=== PATIENT | female | born 1975 | race Caucasian/White ===

== ENCOUNTER 2018-06-21 07:11 | Inpatient (IN) | payer BC ==
[2018-06-21] MEDS ORDERED: Sodium Chloride 0.9% 1,000 ML IV STA (07:35)
--- NOTE | 2018-06-21 07:38 | ED PDOC ---
Arrival/HPI - General Chief Complaint: Cough, Cold, Congestion Time Seen by Provider: 06/21/18 07:29 Historian: Patient - History of Present Illness Narrative History of Present Illness (Text): 06/21/18 07:35 42 year old female, whose past medical history includes pituitary adenoma and anemia, who presents to the Emergency department complaining of cough, congestion, and abdominal pain. Pt states when she lays on her back, her cough is worse. Patient denies any fever, chest pain, shortness of breath, nausea, vomiting, diarrhea, urinary symptoms, back pain, neck pain, headache, dizziness, or any other complaints. PMD: Dr. West Symptom Onset: Gradual Symptom Course: Unchanged Activities at Onset: Light Context: Home Past Medical History - Provider Review Nursing Documentation Reviewed: Yes - Cardiac Hx Cardiac Disorders: No - Pulmonary Hx Respiratory Disorders: No - Neurological Hx Neurological Disorder: No - HEENT Hx HEENT Disorder: No - Renal Hx Renal Disorder: No - Endocrine/Metabolic Hx Endocrine Disorders: Yes Other/Comment: Pituitary gland problem - Hematological/Oncological Hx Blood Disorders: No - Integumentary Hx Dermatological Disorder: Yes Other/Comment: acne - Musculoskeletal/Rheumatological Hx Musculoskeletal Disorders: No Hx Falls: No - Gastrointestinal Hx Gastrointestinal Disorders: No - Genitourinary/Gynecological Hx Genitourinary Disorders: No - Psychiatric Hx Psychophysiologic Disorder: No Hx Depression: No Hx Emotional Abuse: No Hx Physical Abuse: No Hx Substance Use: No - Surgical History Hx Section: Yes - Suicidal Assessment Feels Threatened In Home Enviroment: No Family/Social History - Physician Review Nursing Documentation Reviewed: Yes Family/Social History: Unknown Family HX Smoking Status: Never Smoked Hx Alcohol Use: No Hx Substance Use: No Allergies/Home Meds Allergies/Adverse Reactions: Allergies No Known Allergies Allergy (Verified 08/15/16 08:48) Home Medications: Home Meds Medication Instructions Recorded Confirmed Spironolactone [Aldactone] 25 mg PO DAILY 08/15/16 08/15/16 Spironolactone [Aldactone] 100 mg PO DAILY 08/15/16 08/15/16 Review of Systems - Physician Review All systems were reviewed & negative as marked: Yes - Review of Systems Constitutional: Normal Eyes: Normal ENT: Sinus Congestion Respiratory: Cough. absent: SOB Cardiovascular: Normal. absent: Chest Pain Gastrointestinal: Abdominal Pain Genitourinary Female: Normal. absent: Dysuria, Frequency Musculoskeletal: Normal. absent: Back Pain, Neck Pain Skin: Normal. absent: Rash Neurological: Normal. absent: Headache, Dizziness Endocrine: Normal Hemo/Lymphatic: Normal Psychiatric: Normal Physical Exam Vital Signs Reviewed: Yes Vital Signs Temp Pulse Resp BP Pulse Ox 06/21/18 07:22 98.1 F 69 18 132/62 98 Temperature: Afebrile Blood Pressure: Normal Pulse: Regular Respiratory Rate: Normal Appearance: Positive for: Well-Appearing, Non-Toxic, Comfortable Pain Distress: None Mental Status: Positive for: Alert and Oriented X 3 - Systems Exam Head: Present: Atraumatic, Normocephalic Pupils: Present: PERRL Extroacular Muscles: Present: EOMI Conjunctiva: Present: Normal Mouth: Present: Moist Mucous Membranes Neck: Present: Normal Range of Motion Respiratory/Chest: Present: Clear to Auscultation, Good Air Exchange. No: Respiratory Distress, Accessory Muscle Use Cardiovascular: Present: Regular Rate and Rhythm, Normal S1, S2. No: Murmurs Abdomen: Present: Tenderness (epigastric). No: Distention, Peritoneal Signs Back: Present: Normal Inspection Upper Extremity: Present: Normal Inspection. No: Cyanosis, Edema Lower Extremity: Present: Normal Inspection. No: Edema Neurological: Present: GCS=15, CN II-XII Intact, Speech Normal Skin: Present: Warm, Dry, Normal Color. No: Rashes Psychiatric: Present: Alert, Oriented x 3, Normal Insight, Normal Concentration Medical Decision Making ED Course and Treatment: 06/21/18 07:38 Impression: 42 year old female presents to the Emergency department complaining of cough, congestion, and abdominal pain. no h/ o of gi bleeding Plan: -- Labs -- Chest X-ray -- Protonix -- Sodium Chloride -- HCG, Qualitative urine -- UA -- Reassess and disposition Progress Notes: 06/21/18 07:59 Chest X-ray reviewed, shows: No acute disease. 06/21/18 08:48 Pt refused rectal exam. 06/21/18 12:33 labs cxr neg. pain resoveld pt sleepign refuses rectal. blood transfusion ordred. accepted by dr wesley jansen. - Scribe Statement The provider has reviewed the documentation as recorded by the Scrib[employer]ravo All medical record entries made by the Liamibunqiue were at my direction and personally dictated by me. I have reviewed the chart and agree that the record accurately reflects my personal performance of the history, physical exam, medical decision making, and the department course for this patient. I have also personally directed, reviewed, and agree with the discharge instructions and disposition. Disposition/Present on Arrival - Present on Arrival Any Indicators Present on Arrival: No History of DVT/PE: No History of Uncontrolled Diabetes: No Urinary Catheter: No History of Decub. Ulcer: No History Surgical Site Infection Following: None - Disposition Have Diagnosis and Disposition been Completed?: Yes Diagnosis: Cough, Anemia Disposition: HOSPITALIZED Disposition Time: 11:00 Condition: STABLE
[2018-06-21 08:21] LABS: BASO # 0.01 K/mm3 (0.0-2.0); BASO % 0.2 % (0.0-3.0); EOS # 0.1 (0.0-0.7); EOS % 1.5 % (1.5-5.0); GRAN # 2.93 (1.4-6.5); LYMPH # 1.9 (1.2-3.4); LYMPH % 35.8 % (22.0-35.0); MEAN CELL VOLUME 63.4 fl (80.0-105.0); MEAN CORPUSCULAR HEMOGLOBIN 17.6 pg (25.0-35.0); MEAN CORPUSCULAR HGB CONC 27.7 g/dl (31.0-37.0); MONO # 0.3 (0.1-0.6); MONO % 6.5 % (1.0-6.0); PLATELET COUNT 197 10^3/uL (120.0-450.0); RBC 3.93 10^6/uL (3.5-6.1); WHITE BLOOD COUNT 5.2 10^3/uL (4.5-11.0)
[2018-06-21 08:22] LABS: URINE BILIRUBIN NEGATIVE (NEGATIVE); URINE BLOOD NEGATIVE (NEGATIVE); URINE GLUCOSE (UA) NEGATIVE (NEGATIVE); URINE LEUKOCYTE ESTERASE NEGATIVE Leu/uL (NEGATIVE); URINE PROTEIN NEGATIVE mg/dL (<30 mg/dL); URINE UROBILINOGEN 0.2 E.U./dL (<1 E.U./dL)
[2018-06-21 08:26] LABS: ALB/GLOB RATIO 1.2 (1.1-1.8); ALBUMIN 4.3 g/dL (3.0-4.8); ALT/SGPT 29 U/L (7-56); AST/SGOT 19 U/L (14-36); BLOOD UREA NITROGEN 15 mg/dL (7-21); CALCIUM 9.1 mg/dL (8.4-10.5); GFR NON-AFRICAN AMERICAN > 60; INR 1.26; LIPASE 239 U/L (23-300); PARTIAL THROMBOPLASTIN TIME 30.7 Seconds (25.1-36.5); PROTHROMBIN TIME 14.5 SECONDS (9.4-12.5)
[2018-06-21 08:34] LABS: HEMOGLOBIN 6.9 g/dL (12.0-16.0)
[2018-06-21 08:41] LABS: HCG,QUALITATIVE URINE NEGATIVE (NEGATIVE); URINE APPEARANCE CLEAR (CLEAR); URINE COLOR YELLOW (YELLOW)
--- NOTE | 2018-06-21 09:38 | RAD ---
Date of service: 06/21/2018 HISTORY: cough COMPARISON: Chest radiograph dated 01/25/2013. FINDINGS: LUNGS: No active pulmonary disease. PLEURA: No significant pleural effusion identified, no pneumothorax apparent. CARDIOVASCULAR: No aortic atherosclerotic calcification present. Normal cardiac size. No pulmonary vascular congestion. OSSEOUS STRUCTURES: No significant abnormalities. VISUALIZED UPPER ABDOMEN: Normal. OTHER FINDINGS: None. IMPRESSION: No active disease.
[2018-06-21 11:18] LABS: IRON 23 ug/dL (45-180)
[2018-06-21 11:28] LABS: % IRON SATURATION 5 % (20-55); TOTAL IRON BINDING CAPACITY 481 ug/dL (265-497)
[2018-06-21] MEDS: Pantoprazole 40 mg EC Tab PO SCH (12:09)
[2018-06-21] MEDS: Multivitamin With Minerals Tab PO SCH (12:09)
[2018-06-21 14:52] VITALS: BMI 28.7
[2018-06-21 16:10] LABS: HEMOGLOBIN 8.1 g/dL (12.0-16.0)
[2018-06-21 17:10] LABS: FOLATE 9.2 ng/mL
[2018-06-21] MEDS: Levalbuterol 0.63 MG/3 ML Inhal Soln UD IH SCH (19:54)
--- NOTE | 2018-06-22 01:24 | CON ---
DATE: 06/21/2018 REFERRING PHYSICIAN: Dr. West. REASON FOR CONSULTATION: Cough, shortness of breath, may have sleep apnea syndrome. HISTORY OF PRESENT ILLNESS: This is a 42 years old female with past medical history significant for pituitary adenoma, history of anemia, comes in to ER with cough, congestion, mild abdominal discomfort, feeling weak and tired. No hemoptysis, no hematemesis, no hematuria, no diarrhea, no leg pain or leg swelling. PAST MEDICAL HISTORY: Pituitary adenoma, anemia. FAMILY HISTORY: No significant cardiopulmonary disease reported. SOCIAL HISTORY: Nonsmoker, nondrinker. ALLERGIES: NONE KNOWN. MEDICATIONS: As an outpatient, she had been on Aldactone, presently on Pepcid 40 mg h.s., also on Protonix 40 mg daily and multivitamins. REVIEW OF SYSTEMS: Denied any headache. Some rhinitis, cough, and shortness of breath. No chest pain. No nausea. No dysuria. No leg pain or leg swelling. PHYSICAL EXAMINATION: GENERAL: No acute distress. VITAL SIGNS: Temperature is 98, heart rate is 64, respiratory rate is 14, blood pressure 104/59, pulse ox 100% on room air. HEENT: Moist mucous membrane. Crowded airway. Mallampati score is 4. NECK: Supple. No JVD. LUNGS: Fair airflow, rhonchi. HEART: S1, S2. ABDOMEN: Soft, nontender. No organomegaly. EXTREMITIES: There is no edema. NEUROLOGIC: Awake and follows simple commands. LABORATORY DATA: Hemoglobin on admission 6.9, after transfusion is 8.1; WBC 5.2; platelet is 197. INR 1.26, PTT is 31. Sodium 138, potassium 2.9, chloride 106, bicarbonate is 26, BUN 15, creatinine 0.6, glucose 104, hemoglobin A1c 5.8. Calcium 9.1, magnesium 2.3. Iron is 23. AST 19, ALT 29, alk phos is 88. Albumin 4.3. Triglycerides 215, cholesterol 211, lipase 239. Vitamin B12 is 328. Folate is 9.2. Urine shows unremarkable. Beta-hCG qualitative is negative. Influenza A and B is negative. Chest x-ray, no infiltrate or effusion. IMPRESSION AND PLAN: May have bronchitis triggered by probably viral syndrome, severe anemia, history of pituitary adenoma, may have a B12 deficiency. Gastroesophageal reflux disease cannot be ruled out. Need to consider sleep apnea. Agree with the present management. Will add doxycycline 100 mg twice a day, inhaled bronchodilator, add cough suppressor. SCD to lower extremity. We will recommend PFT as outpatient. Also, we will recommend sleep study as outpatient. We will send cortisol level and TSH for the morning, reticulocyte count for the morning. We will rule out thalassemia-related anemia. Thank you and we will follow with you. Angela Jaffe MD
--- NOTE | 2018-06-22 02:48 | HP ---
DATE OF EXAM: She came in because of feeling weak and anemia getting worse. HISTORY OF PRESENT ILLNESS: A 42-year-old female, past medical history include the pituitary adenoma and anemia who came to the ER because of cough, congestions, abdominal discomfort and feeling food, upper GI symptoms. She denied any abdominal pain, nausea or vomiting or any fever or any chest pain or short of breath or vomiting or diarrhea or any dysuria or any symptoms. PAST MEDICAL HISTORY: Noted for anemia and adenoma, also anemia with multiple blood transfusions and work up that was negative, unclear etiology for anemia. REVIEW OF SYSTEMS: She denied any menorrhagia or any GI bleeding. However, according to the patient, workup was negative for anemia, workup GI dyspepsia may be, but otherwise negative. No constipation. No diarrhea or no other complaint. Negative, rest of the review of system. ALLERGIES: NO KNOWN ALLERGY. MEDICATIONS: She does take Aldactone 100 mg p.o. daily, iron pills with vitamin D, Nexium 20 mg p.o. daily. SOCIAL HISTORY: Never smoked, never drink and no history of substance abuse. PHYSICAL EXAMINATION: GENERAL: The patient looks comfortable, alert, awake, oriented x3. VITAL SIGNS: Temperature 97.9, heart rate 64, blood pressure 104/59, respirations 14. HEAD AND NECK: Normal. No JVD. No thyromegaly. CHEST: Clear bilaterally. CARDIAC: First sound and second sound normal. ABDOMEN: Soft, no tenderness. EXTREMITIES: No edema. NEUROLOGIC: Normal. LABORATORY DATA: White count 5.2, hemoglobin 6.9, hematocrit 24.9, platelets 197. Chemistry; sodium 138, potassium 3.9, chloride 106, bicarb 26, BUN 15, creatinine 0.7, magnesium 2.3. Liver function test is normal. Albumin/globulin is normal. The patient also had triglycerides 250, cholesterol 211 and LDL is 121. Lipase is normal and B12 is 328. Iron studies shows low iron and low iron saturations. IMPRESSION AND PLAN: This is a 42-year-old female, she presented with some respiratory symptoms and some upper gastrointestinal symptoms, came in found to be severely anemic due to iron deficiency anemia. We will transfuse the patient, admit for observations. She may need gastrointestinal evaluation by Dr. Clark also, Dr. Zaidi for Hematology consult. The patient will need iron infusions. She can get back in hospital and continue that as outpatient workup to be done as outpatient. Jakub Calvert MD
[2018-06-22] MEDS: Levalbuterol 0.63 MG/3 ML Inhal Soln UD IH SCH ×3 (07:25→20:17)
[2018-06-22 07:53] LABS: HEMOGLOBIN 8.4 g/dL (12.0-16.0); MEAN CELL VOLUME 65.3 fl (80.0-105.0); MEAN CORPUSCULAR HEMOGLOBIN 18.6 pg (25.0-35.0); MEAN CORPUSCULAR HGB CONC 28.5 g/dl (31.0-37.0); PLATELET COUNT 213 10^3/uL (120.0-450.0); RBC 4.52 10^6/uL (3.5-6.1); RED CELL DISTRIBUTION WIDTH 19.8 % (11.5-14.5); WHITE BLOOD COUNT 5.2 10^3/uL (4.5-11.0)
[2018-06-22 08:07] LABS: BLOOD UREA NITROGEN 12 mg/dL (7-21); CALCIUM 9.4 mg/dL (8.4-10.5); GFR NON-AFRICAN AMERICAN > 60
--- NOTE | 2018-06-22 10:16 | CP.PCM.CON ---
<John Mcdaniels - Last Filed: 06/22/18 14:39> History of Present Illness - History of Present Illness History of Present Illness: John Mcdaniels DO. GI consult note for Dr Clark 42 y/o female with PMH of chronic iron deficiency anemia, pituitary adenoma admitted to [facility] for URI/bronchitis. GI consulted for symptomatic anemia with low hemoglobin level at admission (H/H 6.9/24.9) requiring 1 unit of PRBC. Patient admits to feeling fatigue, decreased energy level lately. She states that she had chronic iron deficiency anemia since teenage with her Hgb baseline between 8-10. She is on Iron tablets but is non compliant as it causes stomach upset. Patient reports receiving 2 blood transfusions in the past. First blood transfusion at age of 18 and second was 5 years ago both of which were due to symptomatic anemia with low Hgb levels. Patient reports irregular menstrual cycles, occurs every 2 months, heavy bleeding in the first 2 days with 6 pads per days, lasts 4-5 days, LPM 2 weeks ago. Patient has pituitary adenoma for which she used to take bromocriptine but stopped taking many weeks ago. Patient had EGD in 2012 with normal results. She denied CSPY in the past. She denied N /V/D, changes in bowel movement, bleeding per rectum, dark stool, hematemesis, hematochezia, melena. ROS reviewed with pertinent positive as above PMH: chronic iron deficiency anemia, pituitary adenoma, acne PSH: x1 All: NKDA Meds: spironolactone for acne, SH: denied alcohol, tobacco, drug use. Works as a teacher. FH: mother has gastric cancar at age 63 Endo: EGD in 2102, normal results. No CSPY Past Patient History - Past Social History Smoking Status: Never Smoked - CARDIAC Hx Cardiac Disorders: No - PULMONARY Hx Respiratory Disorders: No - NEUROLOGICAL Hx Neurological Disorder: No - HEENT Hx HEENT Problems: No - RENAL Hx Chronic Kidney Disease: No - ENDOCRINE/METABOLIC Hx Endocrine Disorders: Yes Other/Comment: Pituitary gland problem - HEMATOLOGICAL/ONCOLOGICAL Hx Blood Disorders: No Hx Anemia: Yes - INTEGUMENTARY Hx Dermatological Problems: Yes Other/Comment: acne - MUSCULOSKELETAL/RHEUMATOLOGICAL Hx Falls: No - GASTROINTESTINAL Hx Gastrointestinal Disorders: No - GENITOURINARY/GYNECOLOGICAL Hx Genitourinary Disorders: No - PSYCHIATRIC Hx Psychophysiologic Disorder: No Hx Depression: No Hx Emotional Abuse: No Hx Physical Abuse: No - SURGICAL HISTORY Hx Surgeries: Yes () Meds Allergies/Adverse Reactions: Allergies Allergy/AdvReac Type Severity Reaction Status Date / Time No Known Allergies Allergy Verified 08/15/16 08:48 - Medications Medications: Current Medications Doxycycline Hyclate (Doryx) 100 mg PO Q12 SARAH; Protocol Last Admin: 06/21/18 21:50 Dose: 100 mg Famotidine (Pepcid) 40 mg PO HS SARAH Last Admin: 06/21/18 21:50 Dose: 40 mg Levalbuterol HCl (Xopenex) 0.63 mg IH TIDRESP SARAH Last Admin: 06/22/18 07:25 Dose: 0.63 mg Multivitamins/Minerals (Therapeutic-M Tab) 1 tab PO DAILY [facility] Last Admin: 06/21/18 12:09 Dose: 1 tab Pantoprazole Sodium (Protonix Ec Tab) 40 mg PO DAILY [facility] Last Admin: 06/21/18 12:09 Dose: 40 mg Physical Exam - Constitutional Appears: Well, No Acute Distress - Head Exam Head Exam: ATRAUMATIC, NORMAL INSPECTION, NORMOCEPHALIC - Eye Exam Eye Exam: EOMI, PERRL. absent: Scleral icterus Pupil Exam: NORMAL ACCOMODATION Additional comments: conjunctival pallor - ENT Exam ENT Exam: Mucous Membranes Dry - Neck Exam Neck exam: Positive for: Full Rom, Normal Inspection. Negative for: Thyromegaly - Respiratory Exam Respiratory Exam: Clear to Auscultation Bilateral, NORMAL BREATHING PATTERN. absent: Rales, Rhonchi - Cardiovascular Exam Cardiovascular Exam: REGULAR RHYTHM, +S1, +S2. absent: Gallop, Rubs - GI/Abdominal Exam GI & Abdominal Exam: Normal Bowel Sounds, Soft. absent: Tenderness - Extremities Exam Extremities exam: Positive for: normal capillary refill, normal inspection, pedal edema, pedal pulses present - Back Exam Back exam: NORMAL INSPECTION - Neurological Exam Neurological exam: Alert, CN II-XII Intact, Normal Gait, Oriented x3, Reflexes Normal - Psychiatric Exam Psychiatric exam: Normal Affect, Normal Mood - Skin Skin Exam: Dry, Intact, Pallor Results - Vital Signs Recent Vital Signs: Last Vital Signs Temp 98.6 F 06/22/18 06:00 Pulse 62 06/22/18 06:00 Resp 20 06/22/18 06:00 BP 121/55 L 06/22/18 06:00 Pulse Ox 100 06/22/18 06:00 - Labs Result Diagrams: 06/22/18 07:20 06/22/18 07:20 Labs: Laboratory Results - last 24 hr 06/21/18 06/21/18 06/21/18 08:00 08:00 08:00 WBC RBC Hgb Hct MCV MCH MCHC RDW Plt Count Sodium Potassium Chloride Carbon Dioxide Anion Gap BUN Creatinine Est GFR ( Amer) Est GFR (Non-Af Amer) Random Glucose Hemoglobin A1c 5.8 Calcium Iron 23 L TIBC 481 % Saturation 5 L Triglycerides 215 H Cholesterol 211 H LDL Cholesterol Direct 121 HDL Cholesterol 40 Vitamin B12 328 Folate 9.2 TSH 3rd Generation Blood Type Antibody Screen Crossmatch BBK History Checked 06/21/18 06/21/18 06/22/18 08:49 16:00 07:20 WBC 5.2 RBC 4.52 Hgb 8.1 L 8.4 L Hct 28.5 L 29.5 L MCV 65.3 L MCH 18.6 L MCHC 28.5 L RDW 19.8 H Plt Count 213 Sodium Potassium Chloride Carbon Dioxide Anion Gap BUN Creatinine Est GFR ( Amer) Est GFR (Non-Af Amer) Random Glucose Hemoglobin A1c Calcium Iron TIBC % Saturation Triglycerides Cholesterol LDL Cholesterol Direct HDL Cholesterol Vitamin B12 Folate TSH 3rd Generation Blood Type B POSITIVE Antibody Screen Negative Crossmatch See Detail BBK History Checked Patient has bt 06/22/18 06/22/18 07:20 07:20 WBC RBC Hgb Hct MCV MCH MCHC RDW Plt Count Sodium 139 Potassium 4.2 Chloride 107 Carbon Dioxide 26 Anion Gap 10 BUN 12 Creatinine 0.7 Est GFR ( Amer) > 60 Est GFR (Non-Af Amer) > 60 Random Glucose 109 Hemoglobin A1c Calcium 9.4 Iron TIBC % Saturation Triglycerides Cholesterol LDL Cholesterol Direct HDL Cholesterol Vitamin B12 Folate TSH 3rd Generation 1.58 Blood Type Antibody Screen Crossmatch BBK History Checked Assessment & Plan - Assessment and Plan (Free Text) Assessment: 42 y/o female with PMH of chronic iron deficiency anemia, pituitary adenoma a dmitted to [facility] for URI/bronchitis. She was found to have low hemoglobin level at admission (H/H 6.9/24.9) requiring 1 unit of PRBC Plan: Symptomatic anemia: -H/H 6.9/24.9 on admission, improved to 8.4/29.5 s/p 1 unit of PRBC transfusion -chronic iron deficiency anemia. non compliant with iron tab meds due to GI upset -Iron 23 TIBC 481 SAT 5% MCV 65.3 -AST/ALT/ALP wnl -patient has fatigue, low energy lately -pituitary adenoma with irregular, heavy cycles. stopped bromocriptine therapy -Iron deficiency anemia with h/o blood transfusion x2, last was in 2012 -EGD in 2012 negative. no CSPY -continue PPI -transfuse PRBC prn -IV iron -FOBT, retic count ordered -no endoscopic procedures needed at this time -patient advised to f/u outpatient EGD/CSPY -f/u outpatient hematology for periodic IV iron -continue medical management as per primary team Case reviewed and plan discussed with attending Dr Eduardo Mcdaniels, - <Nano Clark V - Last Filed: 06/23/18 23:49> Results - Vital Signs Recent Vital Signs: Last Vital Signs Temp 98.4 F 06/23/18 06:00 Pulse 71 06/23/18 06:00 Resp 20 06/23/18 06:00 BP 107/60 06/23/18 06:00 Pulse Ox 98 06/23/18 14:42 - Labs Result Diagrams: 06/23/18 07:30 06/23/18 07:30 Labs: Laboratory Results - last 24 hr 06/23/18 06/23/18 06/23/18 07:30 07:30 12:00 WBC 6.8 D RBC 4.62 Hgb 9.1 L Hct 31.0 L MCV 67.1 L MCH 19.7 L MCHC 29.4 L RDW 21.6 H Plt Count 215 Gran % 60.3 Lymph % (Auto) 30.4 [place] % (Auto) 8.3 H Eos % (Auto) 0.7 L Baso % (Auto) 0.3 Gran # 4.12 Lymph # (Auto) 2.1 [place] # (Auto) 0.6 Eos # (Auto) 0.1 Baso # (Auto) 0.02 Sodium 140 Potassium 3.6 Chloride 108 H Carbon Dioxide 24 Anion Gap 12 BUN 13 Creatinine 0.6 L Est GFR ( Amer) > 60 Est GFR (Non-Af Amer) > 60 Random Glucose 91 Calcium 9.3 Total Bilirubin 0.5 AST 18 ALT 21 Alkaline Phosphatase 83 Total Protein 7.6 Albumin 4.2 Globulin 3.4 Albumin/Globulin Ratio 1.3 Stool Occult Blood Negative Attending/Attestation - Attestation I have personally seen and examined this patient.: Yes I have fully participated in the care of the patient.: Yes I have reviewed all pertinent clinical information: Yes Notes (Text): This is an addendum to GI consult report dictated by the Funeral Counselor. The patient was seen and evaluated earlier. Medical records, lab studies, imagings were reviewed. Last 24 hours events reviewed. Agreed with the above treatment plan as outlined in Funeral Counselor 's notes with the addition of the following patient was explained about anemia and the necessity to follow-up Patient is poorly compliant Long history of anemia Unable to tolerate by mouth iron Would benefit from IV iron infusions Would benefit from elective EGD and colonoscopy We discussed with the PCP 06/23/18 23:47
[2018-06-22] MEDS: Pantoprazole 40 mg EC Tab PO SCH (10:26)
[2018-06-22] MEDS: Multivitamin With Minerals Tab PO SCH (10:26)
[2018-06-22] MEDS ORDERED: Benzocaine/Menthol (Cepacol) Lozenge MT PRN (11:18)
--- NOTE | 2018-06-22 12:50 | PN ---
DATE: 06/22/2018 PULMONARY PROGRESS NOTE REFERRING PHYSICIAN: Dr. Patty West. SUBJECTIVE: The patient is sitting up in bed. No acute distress. Reports feeling well this morning. Has slight sore throat. Reports having a dry cough last night. No headache, rhinitis, chest pain, abdominal pain, nausea, vomiting, leg pain, leg swelling reported. OBJECTIVE: GENERAL: No acute distress. VITAL SIGNS: Blood pressure 121/55, pulse 62, temperature 98.6, and oxygen saturation 100% on room air. HEENT: Moist mucous membrane. Crowded airway. Mallampati score is 4. NECK: Supple. No JVD. LUNGS: Clear bilaterally. CARDIOVASCULAR: S1 and, S2 audible. ABDOMEN: Soft and nontender. No distention. No organomegaly. EXTREMITIES: No bilateral lower extremity edema. NEUROLOGIC: Awake, alert, and verbal. Follows commands. MEDICATIONS: Reviewed. Doxycycline 100 mg every 12 hours, Pepcid 40 mg at bedtime, Xopenex 0.63 mg inhalation three times a day, multivitamin and minerals 1 tab daily, and Protonix 40 mg daily. LABORATORY DATA: Reviewed. WBC 5.2, RBC 4.52, hemoglobin 8.4, hematocrit 29.5, and platelets 213. Sodium 139, potassium 4.2, chloride 107, carbon dioxide 26, anion gap 10, BUN 12, creatinine 0.7, GFR greater than 60, random glucose 109 and calcium 9.4. TSH 1.58. IMPRESSION AND PLAN: Bronchitis triggered by probable viral syndrome, severe anemia, history of pituitary adenoma, vitamin B12 deficiency, gastroesophageal reflux disease cannot be ruled out, and suspected sleep apnea syndrome. Continue antibiotic therapy, inhaled bronchodilators. We will add Cepacol for sore throat and Tessalon Perles for cough, sequential compression devices to bilateral lower extremity for deep venous thrombosis prophylaxis. The patient has family history of gastric cancer. Appreciated Gastroenterology's note. Continue Gastroenterology followup. We will start IV Venofer 200 mg daily for about three days. Recommend the patient has PFT as outpatient. Also recommend the patient has sleep study as outpatient. This patient was seen and examined with Dr. Jaffe. Discussed assessment and plan as described above. Thank you for this consult. We will follow with you. Km Menard APN Angela Jaffe MD [facility] # [id number] DAVID
--- NOTE | 2018-06-22 20:37 | CON ---
DATE: 06/22/2018 This is [facility] consult on the medical floor. For Dr. Zaidi. CHIEF COMPLAINT: Anemia. HISTORY OF PRESENT ILLNESS: The patient is a 42-year-old known history of pituitary adenoma with significant anemic indices, which she presented to the emergency room and status post transfusion of 1 unit of packed cells for hemoglobin of 6.9 yesterday. It appears that the patient had a similar problem in 2012 with hemoglobin of 6.5 with the patient having dizziness and fatigue as her main complaint then and as it is now. In the past, she had evaluation with , hematology/oncology with workup gastrointestinal engineering consultant at the time with consideration for celiac disease versus bleeding with negative workup at that time reported. The patient is otherwise not feeling much better after the 1 unit of packed cells was transfused. ALLERGIES: NO ALLERGIES. MEDICATIONS: Denies any medicines, although she was taking spironolactone for her acne at one point she reports, which as been discontinued. PAST MEDICAL HISTORY: Significant for anemia and a pituitary adenoma with irregular menses secondary to above, with history of multiple transfusions ? in the past. 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 PHYSICAL EXAMINATION VITAL SIGNS: Temperature 98.6, pulse 62, respirations 20, blood pressure 121/55, and pulse ox 100%. HEENT: Unremarkable. NECK: Supple. HEART: Regular rate. LUNGS: Clear. ABDOMEN: Soft, nontender. EXTREMITIES: No edema. SKIN: Warm and dry. NEUROLOGIC: Awake, alert and oriented x3. LABORATORY DATA: The patient's labs were done. White blood cell count on admission 6.9, repeat of 8.1, after transfusion with a hemoglobin 8.4 this morning, hematocrit of 29.5, platelet count of 213,000 and white count of 5.2. Her INR was 1.26 yesterday with metabolic panel showing iron percent saturation of 5%. TSH of 1.58. The patient's urine was negative to sugar, blood, and protein. Influenza testing was negative. The patient had a chest x-ray done that was read as no active disease. ASSESSMENT: The assessment for this patient is that of symptomatic anemia. The patient reports that her menses is irregular, but it is not severe as far as bleeding goes with the patient have been transfused 1 unit of packed cells already, we will transfuse a second unit of paced cells as per Dr. Zaidi's recommendation. With testing to be done to include hemoglobin, electrophoresis and pathology to be done. We will discontinue spironolactone, the patient reports she is not taking it. We will monitor clinically with labs. This is a complex patient with a comprehensive medically necessary and appropriate visit carried out in excess of 40 minutes with the patient's questions answered to her satisfaction. Óscar Aranda MD
[2018-06-22 21:18] VITALS: TEMP 98.4
--- NOTE | 2018-06-23 07:22 | CP.PCM.PN ---
<John Mcdaniels - Last Filed: 06/23/18 17:29> Subjective - Date & Time of Evaluation Date of Evaluation: 06/23/18 Time of Evaluation: 08:10 - Subjective Subjective: John Mcdaniels DO, PGY1. GI Progress note for Dr Eduardo Mcdaniels DO, PGY1. GI Progress note for Dr Clark Patient seen and examined at bedside. No events overnight. She has no complaints. Feeling better after receiving the second unit of PRBC transfusion. Patient denied abdominal pain, N/V/D, chest pain, SOB, palpitations, fever, chills Objective - Vital Signs/Intake and Output Vital Signs (last 24 hours): Temp Pulse Resp BP Pulse Ox 98.4 F 92 H 18 111/63 97 06/22/18 21:17 06/22/18 21:17 06/22/18 21:17 06/22/18 21:17 06/22/18 21:17 Intake and Output: 06/23/18 06/23/18 06:59 18:59 Intake Total 855 Balance 855 - Medications Medications: Current Medications Benzocaine/Menthol (Cepacol Sore Throat) 1 napoleon MT Q2H PRN PRN Reason: Sore Throat Last Admin: 06/22/18 15:28 Dose: 1 napoleon Benzonatate (Tessalon Perles) 100 mg PO TID [facility] Last Admin: 06/22/18 18:00 Dose: 100 mg Doxycycline Hyclate (Doryx) 100 mg PO Q12 SARAH; Protocol Last Admin: 06/22/18 21:26 Dose: 100 mg Famotidine (Pepcid) 40 mg PO HS SARAH Last Admin: 06/22/18 21:26 Dose: 40 mg Levalbuterol HCl (Xopenex) 0.63 mg IH TIDRESP [facility] Last Admin: 06/22/18 20:17 Dose: 0.63 mg Multivitamins/Minerals (Therapeutic-M Tab) 1 tab PO DAILY [facility] Last Admin: 06/22/18 10:26 Dose: 1 tab Pantoprazole Sodium (Protonix Ec Tab) 40 mg PO DAILY [facility] Last Admin: 06/22/18 10:26 Dose: 40 mg - Labs Labs: 06/22/18 07:20 06/22/18 07:20 PT 14.5 SECONDS (9.4-12.5) H 06/21/18 08:00 INR 1.26 06/21/18 08:00 APTT 30.7 Seconds (25.1-36.5) 06/21/18 08:00 - Additional Findings Additional findings: - Constitutional Appears: Well, No Acute Distress - Head Exam Head Exam: ATRAUMATIC, NORMAL INSPECTION, NORMOCEPHALIC - Eye Exam Eye Exam: EOMI, PERRL. absent: Scleral icterus Pupil Exam: NORMAL ACCOMODATION - ENT Exam ENT Exam: Mucous Membranes Dry - Neck Exam Neck exam: Positive for: Full Rom, Normal Inspection. Negative for: Thyromegaly - Respiratory Exam Respiratory Exam: Clear to Auscultation Bilateral, NORMAL BREATHING PATTERN. absent: Rales, Rhonchi - Cardiovascular Exam Cardiovascular Exam: REGULAR RHYTHM, +S1, +S2. absent: Gallop, Rubs - GI/Abdominal Exam GI & Abdominal Exam: Normal Bowel Sounds, Soft. absent: Tenderness - Extremities Exam Extremities exam: Positive for: normal capillary refill, normal inspection, pedal edema, pedal pulses present - Back Exam Back exam: NORMAL INSPECTION - Neurological Exam Neurological exam: Alert, CN II-XII Intact, Normal Gait, Oriented x3, Reflexes Normal - Psychiatric Exam Psychiatric exam: Normal Affect, Normal Mood - Skin Skin Exam: Dry, Intact, Pallor Assessment and Plan - Assessment and Plan (Free Text) Assessment: 42 y/o female with PMH of chronic iron deficiency anemia, pituitary adenoma admitted to [facility] for URI/bronchitis. She was found to have low hemoglobin level at admission (H/H 6.9/24.9) requiring 2 units of PRBC Plan: Symptomatic anemia: -H/H 6.9/24.9 on admission, improved to 9.1/31 s/p 2 unit of PRBC transfusion and IV iron -chronic iron deficiency anemia. non compliant with iron tab meds due to GI upset -Iron 23 TIBC 481 SAT 5% MCV 65.3 -AST/ALT/ALP wnl -patient has fatigue, low energy lately -pituitary adenoma with irregular, heavy cycles. stopped bromocriptine therapy -Iron deficiency anemia with h/o blood transfusion x2, last was in 2012 -EGD in 2012 negative. no CSPY -continue PPI -transfuse PRBC prn -continue IV iron -FOBT, retic count ordered -no endoscopic procedures needed at this time -patient advised to f/u outpatient EGD/CSPY -f/u outpatient hematology for periodic IV iron, thalassemia workup -continue medical management as per primary team Case reviewed and plan discussed with attending Dr Eduardo Mcdaniels, DO <Nano Clark V - Last Filed: 06/23/18 23:47> Objective - Vital Signs/Intake and Output Vital Signs (last 24 hours): Temp Pulse Resp BP Pulse Ox 98.4 F 71 20 107/60 98 06/23/18 06:00 06/23/18 06:00 06/23/18 06:00 06/23/18 06:00 06/23/18 14:42 - Labs Labs: 06/23/18 07:30 06/23/18 07:30 PT 14.5 SECONDS (9.4-12.5) H 06/21/18 08:00 INR 1.26 06/21/18 08:00 APTT 30.7 Seconds (25.1-36.5) 06/21/18 08:00 Attending/Attestation - Attestation I have personally seen and examined this patient.: Yes I have fully participated in the care of the patient.: Yes I have reviewed all pertinent clinical information, including history, physical exam and plan: Yes Notes (Text): This is an addendum to GI followup report dictated by the Concrete Pile Driver Operator. The patient was seen and evaluated earlier. Medical records, lab studies, imagings were reviewed. Last 24 hours events reviewed. Agreed with the above treatment plan as outlined in Concrete Pile Driver Operator 's notes with the addition of the following discussed with the patient's and the patient advised to follow-up with a supervisor particleboard for iron infusions Advised to follow-up in our office for scheduling EGD and colonoscopy as outpatient Continue empiric therapy with PPI 06/23/18 23:45
[2018-06-23] MEDS: Levalbuterol 0.63 MG/3 ML Inhal Soln UD IH SCH ×2 (07:36→13:38)
[2018-06-23 08:34] LABS: BASO # 0.02 K/mm3 (0.0-2.0); BASO % 0.3 % (0.0-3.0); EOS # 0.1 (0.0-0.7); EOS % 0.7 % (1.5-5.0); GRAN # 4.12 (1.4-6.5); GRAN % 60.3 % (50.0-68.0); HEMOGLOBIN 9.1 g/dL (12.0-16.0); LYMPH # 2.1 (1.2-3.4); LYMPH % 30.4 % (22.0-35.0); MEAN CELL VOLUME 67.1 fl (80.0-105.0); MEAN CORPUSCULAR HEMOGLOBIN 19.7 pg (25.0-35.0); MEAN CORPUSCULAR HGB CONC 29.4 g/dl (31.0-37.0); MONO # 0.6 (0.1-0.6); MONO % 8.3 % (1.0-6.0); PLATELET COUNT 215 10^3/uL (120.0-450.0); RBC 4.62 10^6/uL (3.5-6.1); RED CELL DISTRIBUTION WIDTH 21.6 % (11.5-14.5); WHITE BLOOD COUNT 6.8 10^3/uL (4.5-11.0)
[2018-06-23 08:45] VITALS: BP 107/60; PULSE 71; RESP 20
[2018-06-23 08:50] LABS: ALB/GLOB RATIO 1.3 (1.1-1.8); ALBUMIN 4.2 g/dL (3.0-4.8); ALT/SGPT 21 U/L (7-56); AST/SGOT 18 U/L (14-36); BLOOD UREA NITROGEN 13 mg/dL (7-21); CALCIUM 9.3 mg/dL (8.4-10.5); GFR NON-AFRICAN AMERICAN > 60
[2018-06-23] MEDS: Multivitamin With Minerals Tab PO SCH (10:36)
[2018-06-23] MEDS: Pantoprazole 40 mg EC Tab PO SCH (10:36)
--- NOTE | 2018-06-23 13:46 | PN ---
DATE: 06/23/2018 PULMONARY PROGRESS NOTE REFERRING PHYSICIAN: Patty West MD SUBJECTIVE: The patient is sitting up in bed in no acute distress. The patient reports continued dry cough; reports she is having issues with her throat, unable to swallow solid foods; reports coughing when she eats. No headache, rhinitis, shortness of breath, chest pain, abdominal pain, nausea, vomiting, diarrhea, leg pain or leg swelling reported. OBJECTIVE: GENERAL: No acute distress. VITAL SIGNS: Blood pressure 107/60, pulse 71, temperature 98.4, oxygen saturation 90% on room air. HEENT: Moist mucous membranes. Crowded airway. Mallampati score of 4. NECK: Supple. No JVD. LUNGS: Clear bilaterally. CARDIOVASCULAR: S1 and S2 audible. ABDOMEN: Soft, nontender, no distention, no organomegaly. EXTREMITIES: No bilateral lower extremity edema. NEUROLOGICAL: Awake, alert, and verbal. Follows simple commands. MEDICATIONS: Reviewed. Cepacol throat lozenge every 2 hours p.r.n., Tessalon Perles 100 mg three times a day, Colace 100 mg daily, doxycycline 100 mg every 12 hours, Pepcid 40 mg at bedtime, Xopenex 0.63 mg inhalation three times a day, multivitamins with minerals one tablet p.o. daily, pantoprazole 40 mg daily. LABORATORY DATA: Reviewed. WBC 6.8, RBC 4.62, hemoglobin 9.1, hematocrit 31, and platelets 215. Sodium 140, potassium 3.6, chloride 108, carbon dioxide 24, anion gap 12, BUN 13, creatinine 0.6, GFR greater than 60, random glucose 91. Calcium 9.3, total bilirubin 0.5. AST 18, ALT 21, alkaline phosphatase 83, total protein 7.6, albumin 4.2, globulin 3.4, and albumin-globulin ratio 1.3. Cortisol 10.9. IMPRESSION AND PLAN: Bronchitis triggered by probable viral syndrome, severe anemia, history of pituitary adenoma, vitamin B12 deficiency, gastroesophageal reflux disease cannot be ruled out, and suspected sleep apnea syndrome. We will consult speech therapy for evaluation regarding dysphagia with solid food. We will order esophagogram to rule out esophageal web. We will re-consult Gastroenterology. Continue antibiotic therapy, inhaled bronchodilators. Sequential compression devices use for deep venous thrombosis prophylaxis. We recommend the patient have full pulmonary function test as outpatient as well as sleep study. This patient was seen and examined with Dr. Jaffe. Discussed assessment and plan as described above. Thank you for this consult. We will follow with you. Km Menard APN Angela Jaffe MD DAVID
[2018-06-23 14:57] VITALS: O2SAT 98
--- NOTE | 2018-06-23 20:43 | PN ---
DATE: 06/23/2018 SUBJECTIVE: Mrs. Kaleigh Plata's hospital visit in the intensive care unit as she has not been transferred out to the remote telemetry floor as of yet who is now sitting out of bed in the chair in no acute distress this visit. Her anemia indices are being monitored and treated as per renal consulted with Derrek recommended. Her family is at the bedside and the patient is in no acute distress this visit. OBJECTIVE/PHYSICAL EXAMINATION: VITAL SIGNS: Temperature 98.4, pulse 71, respirations 20, blood pressure 107/60, pulse ox 98%. HEENT: Unremarkable. NECK: No JVD of the neck. LUNGS: As per Dr. Jaffe, lungs are clear. CARDIAC: S1 S2. ABDOMEN: Soft. No splenomegaly. EXTREMITIES: No edema. SKIN: Warm and dry. NEUROLOGICAL: Awake and alert. LABORATORY DATA: The patient's labs were drawn with the patient is now having a white blood cell count of 9.1, increased from 6.9 from admission after second unit of blood was transfused, hematocrit of 31, platelet count of 215,000. Her metabolic panel also was within normal range. ASSESSMENT: The assessment for this patient is that of symptomatic anemia and is otherwise healthy patient with pituitary adenoma and regular menses. PLAN: Plan for this patient is to discharge home as per Dr. Calvert with followup with Dr. Zaidi in the office as testing was done including a hemoglobin electrophoresis and pathology smear review from labs. As the patient is already on an iron preparation, we will continue this. For now she also received Venofer as per the nurse practitioner, possibly under Dr. Jaffe's guidance. We will see the patient in the office after discharge. Óscar Aranda MD
--- NOTE | 2018-06-23 22:04 | PN ---
DATE: 06/22/2018 SUBJECTIVE: The patient is comfortable, no distress, getting transfusion, has no nausea and no vomiting. She does have some feeling of symptoms of acid reflux according to her and sometimes she feels something when she swallows had some discomfort. The patient had previous endoscopy; otherwise feeble, getting infusions. PHYSICAL EXAMINATION VITAL SIGNS: Temperature is 98.6, heart rate 62, blood pressure 121/55, respiration 18 and saturating 100% on room air. HEAD AND NECK: Normal. No JVD. No thyromegaly. CHEST: Clear bilaterally. CARDIAC: First sound and second sound normal. ABDOMEN: Soft and nontender. EXTREMITIES: No edema. NEUROLOGIC: Normal. IMPRESSION: 1. Iron deficiency anemia, history of B12 according to history, the patient will get blood transfusions and seen by Hematology consult, Dr. Dejuan león. 2. Acid reflux probably Protonix in the morning and Pepcid at night. Continue that. 3. The patient had iron deficiency anemia, unclear what workup done for the severity of the anemia and her age, most likely could be related to her period, however, the period is not severe. Recommended the patient to be seen by Dr. Clark as outpatient for gastrointestinal workup including upper and lower endoscopy and capsule endoscopy whatever he recommends. 4. Upper respiratory symptoms, seen by Pulmonology and viral syndrome. We will monitor her case. Continue current therapy. The patient encouraged ambulation. She also had urinalysis which was negative for any blood. Jakub Calvert MD
--- NOTE | 2018-06-24 03:46 | DS ---
HISTORY OF PRESENT ILLNESS: The patient is stable. Clinically, she still has some mild cough, mild feeling of something from the chest going up, probably acid reflux, otherwise she is clinically stable. She wants to go home. She has and she has work. The patient is otherwise stable. PHYSICAL EXAMINATION: GENERAL: The patient was in the hospital, comfortable, relative next to her, she has no complaint. VITAL SIGNS: Temperature is 98.1, heart rate 70, blood pressure 111/63, respirations 18 and saturation 97%. She seems comfortable. HEAD AND NECK: Normal. No JVD. No thyromegaly. CHEST: Clear bilateral. CARDIAC: First sound and second sound normal. ABDOMEN: Soft, nontender. EXTREMITIES: No edema. NEUROLOGIC: Normal. LABORATORY STUDIES: The patient had 2 units of blood transfusion. Her hemoglobin from 6.9, it went up to 9.1, hematocrit 31.0, white count 6.8 and platelets 215. Her chemistry; sodium 140, potassium 3.6, chloride 108, bicarbonate 24, BUN 15, creatinine 0.6. Liver function test is normal. UA is normal. PT/PTT is normal. The patient's urinalysis is negative. The patient's serology was negative for influenza type A and B. The patient has a stool occult blood which was negative. DISCHARGE DIAGNOSES: 1. Iron deficiency anemia. The patient needs to be further worked up as an outpatient exactly is it iron deficiency plus B12, this needs to be evaluated as an outpatient. She had iron pills, recommended to get IV iron and B12 as outpatient. She will follow up with Dr. West. Etiology of the anemia needs to be further evaluated including gastrointestinal workup, urinary and other sources, could be kidney, urine or other etiology. 2. Upper respiratory symptoms. The patient is now getting better with the acid reflux medicine. We will give her Z-VIOLET, Cepacol lozenges, mildly cough medicines and follow up as an outpatient. 3. Acid reflux. Continue Protonix in the morning and Pepcid at night like 3 to 4 weeks and if no improvement, the patient should see gastrointestinal consult for anemia and her symptoms. Dr. Clark, she already knows him and she will make appointment with him. The patient also given an option to see Dr. Zaidi as an outpatients for IV iron therapy and B12 if she needed and also to follow up Dr. West as an outpatient. The patient was discharged, stable hemodynamically, saturating 98% on room air, no respiratory distress and no chest pain. Jakub Calvert MD
[2018-06-24 12:03] LABS: MCH 20.4 pg (27.0-33.0); MCV 66.7 fL (80.0-100.0)
[2018-06-25 06:36] LABS: HEMOGLOBIN A 97.3 Percent (>96.0); HEMOGLOBIN A2 1.7 Percent (1.8-3.5)
== END 2018-06-23 16:55 | disposition home or self-care (01) | DRG 812 ==
LOC: ED 07:11 → ERH 09:44 → 5RSO 11:03 → OBSVTOIN 06-22 12:50 → 5RSO 06-23 03:30
PROVIDERS: ADMIT Internal Medicine; ATTEND Internal Medicine
PROC: 30233N1 Transfusion of Nonautologous Red Blood Cells into Peripheral Vein, Percutaneous Approach (ICD-10-PCS; principal; 2018-06-21)
DX: D50.9 Iron deficiency anemia, unspecified (principal); B34.9 Viral infection, unspecified; D35.2 Benign neoplasm of pituitary gland; J40 Bronchitis, not specified as acute or chronic; K21.9 Gastro-esophageal reflux disease without esophagitis; R13.10 Dysphagia, unspecified; Z91.19 Patient's noncompliance with other medical treatment and regimen; Z98.891 History of uterine scar from previous surgery